=== PATIENT | female | born 1990 | race African-American/Black ===

== ENCOUNTER 2020-12-06 21:27 | Emergency (ER) | payer OTHER ==
[~2020-12-06] VITALS: Ht 165.1 cm; Wt 66.2 kg
[2020-12-06] MEDS ORDERED: PRENTAB9 PO (21:40)
[2020-12-06] MEDS ORDERED: MIRA3350 PO (21:40)
[2020-12-06] MEDS ORDERED: ACETAMINOPHEN *IV* 1,000 MG in IV 1 EA IV ONE (22:05)
[2020-12-06] MEDS ORDERED: NS 1,000 ML IV ONE (22:05)
[2020-12-06 22:20] LABS: BASO % 0.3 % (0.0-1.0); EOS # 0.1 10^3/uL (0.0-0.5); EOS % 1.2 % (0.0-3.0); HEMOGLOBIN 10.7 g/dl (12.0-15.5); LYMPH # 2.4 10^3/uL (1.5-5.0); LYMPH % 36.4 % (24.0-44.0); MEAN CORPUSCULAR HEMOGLOBIN 30.2 pg (27.0-33.0); MEAN CORPUSCULAR HGB CONC 33.4 g/dl (32.0-36.5); MEAN CORPUSCULAR VOLUME 90.4 fl (80.0-96.0); MONO # 0.3 10^3/uL (0.0-0.8); MONO % 5.2 % (2.0-8.0); NEUTROPHILS # 3.7 10^3/uL (1.5-8.5); NEUTROPHILS % 56.7 % (36.0-66.0); PLATELET COUNT, AUTOMATED 195 10^3/uL (150-450); RED BLOOD COUNT 3.54 10^6/uL (4.00-5.40); WHITE BLOOD COUNT 6.5 10^3/uL (4.0-10.0)
[2020-12-06 22:32] LABS: APPEARANCE, URINE CLEAR (CLEAR); BACTERIA, URINE AUTO 1+ (NEGATIVE); BILIRUBIN, URINE AUTO NEGATIVE (NEGATIVE); BLOOD, URINE BLOOD NEGATIVE (NEGATIVE); COLOR, URINE YELLOW (YELLOW); GLUCOSE, URINE (UA) AUTO NEGATIVE (NEGATIVE); KETONE, URINE AUTO NEGATIVE (NEGATIVE); LEUKOCYTE ESTERASE, URINE AUTO NEGATIVE (NEGATIVE); NITRITE, URINE AUTO NEGATIVE (NEGATIVE); PROTEIN, URINE AUTO NEGATIVE (NEGATIVE); RBC, URINE AUTO 0 /HPF (0-3); SPECIFIC GRAVITY URINE AUTO 1.006 (1.002-1.035); SQUAMOUS EPITHELIAL CELL UR AU 1 /HPF (0-6); UROBILINOGEN, URINE AUTO 0.2 mg/dL (0.0-2.0); WBC, URINE AUTO 1 /HPF (0-3)
[2020-12-06 22:42] LABS: ALBUMIN 3.3 GM/DL (3.2-5.2); ALT/SGPT 15 U/L (12-78); BILIRUBIN,DIRECT < 0.1 MG/DL (0.0-0.2); BILIRUBIN,TOTAL < 0.1 MG/DL (0.2-1.0); LIPASE 77 U/L (73-393); TOTAL PROTEIN 7.1 GM/DL (6.4-8.2)
--- NOTE | 2020-12-06 23:20 | REPVR ---
PROCEDURE INFORMATION: Exam: US Abdomen, Limited; Right Upper Quadrant Exam date and time: 12/06/2020 11:02 PM Age: 30 years old Clinical indication: Abdominal pain; Flank; Right; ; Additional info: Rlq abd/flank pain, appy v stone v gallbladder, preg TECHNIQUE: Imaging protocol: US abdomen. Real time ultrasound with image documentation. Limited exam focused on the right upper quadrant. COMPARISON: No relevant prior studies available. FINDINGS: Liver: Normal. No masses. Gallbladder: Normal. No gallstones. There is no gallbladder wall thickening. Common bile duct: Not well visualized. Pancreas: Visualized pancreas is unremarkable. Right kidney: Normal. No mass. No hydronephrosis. IMPRESSION: 1. No acute findings. 2. Common bile duct is not well visualized. Electronically signed by: Bryant Schmidt On 12/06/2020 23:20:47 PM
--- NOTE | 2020-12-06 23:23 | REPVR ---
PROCEDURE INFORMATION: Exam: US , Limited Exam date and time: 12/06/2020 11:02 PM Age: 30 years old Clinical indication: complicated by abdominal or pelvic pain; Right lower quadrant; Second trimester; Gestational age or lmp: 17w 3d; ; Additional info: Rlq abd/flank pain, appy v stone v gallbladder, preg TECHNIQUE: Imaging protocol: Real-time ultrasound of the maternal uterus with image documentation. Exam focused on the clinical indication. COMPARISON: No relevant prior studies available. FINDINGS: Gestation: Single living intrauterine gestation. position: Transverse position. heart rate: 144 bpm Placenta: Posterior placenta. No evidence of placenta previa. Amniotic fluid: Amniotic fluid appears normal. BIOMETRY: Gestational age (AUA): 17 weeks 3 days. Estimated due date (AUA): 05/13/2021. MATERNAL: Cervix: Cervix is thick and closed measuring 3.0 cm. IMPRESSION: 1. Unremarkable single living intrauterine gestation. 2. Estimated gestational age is 7 weeks 3 days. Electronically signed by: Bryant Schmidt On 12/06/2020 23:23:28 PM
[2020-12-06] MEDS ORDERED: SIMETHICONE 80MG CHEW TAB PO STA (23:35)
[2020-12-07] MEDS ORDERED: MORPHINE 4 MG/ML 1ML VIAL/SYRINGE (J2270) IV ONE
[2020-12-07] MEDS ORDERED: SIME180C PO (00:52)
[2020-12-07] MEDS ORDERED: NORCO 5/325MG TABLET (BULK FOR ED) PO ONE (01:00)
[2020-12-07 01:07] VITALS: BP 91/54
[2020-12-08] MEDS ORDERED: OXYC1TAB23 PO (08:48)
[2020-12-08] MEDS ORDERED: OXYC10TA3 PO (10:44)
== END 2020-12-07 01:10 | disposition home or self-care (01) ==
LOC: M ED 21:27
DX: O26.892 Other specified pregnancy related conditions, second trimester (principal); R10.9 Unspecified abdominal pain; N80.9 Endometriosis, unspecified
CPT/HCPCS: 36415; 76705; 76815; 80047; 80076; 81001; 83690; 85025; 87086; 96365; 96375; 99284; J0131; J2270

== ENCOUNTER 2020-12-08 08:36 | Emergency (ER) | payer OTHER ==
[~2020-12-08] VITALS: Ht 165.1 cm; Wt 65.5 kg
[~2020-12-08 08:36] MED LIST: MIRA3350 PO; PRENTAB9 PO; SIME180C PO
[2020-12-08] MEDS ORDERED: OXYC1TAB23 PO (08:48)
[2020-12-08] MEDS ORDERED: DICYCLOMINE INJ 20MG/2ML (J0500) IM ONE (09:25)
[2020-12-08 09:51] LABS: BASO % 0.3 % (0.0-1.0); EOS # 0.1 10^3/uL (0.0-0.5); EOS % 1.1 % (0.0-3.0); HEMATOCRIT 36.2 % (36.0-47.0); HEMOGLOBIN 11.9 g/dl (12.0-15.5); LYMPH # 2.5 10^3/uL (1.5-5.0); LYMPH % 40.7 % (24.0-44.0); MEAN CORPUSCULAR HGB CONC 32.9 g/dl (32.0-36.5); MEAN CORPUSCULAR VOLUME 91.2 fl (80.0-96.0); MONO # 0.3 10^3/uL (0.0-0.8); MONO % 5.3 % (2.0-8.0); NEUTROPHILS # 3.2 10^3/uL (1.5-8.5); NEUTROPHILS % 52.3 % (36.0-66.0); PLATELET COUNT, AUTOMATED 203 10^3/uL (150-450); RED BLOOD COUNT 3.97 10^6/uL (4.00-5.40); WHITE BLOOD COUNT 6.2 10^3/uL (4.0-10.0)
[2020-12-08] MEDS ORDERED: oxyCODONE 5MG TAB PO ONE (10:30)
[2020-12-08] MEDS ORDERED: OXYC10TA3 PO (10:44)
[2020-12-08 11:06] VITALS: BP 114/60
== END 2020-12-08 11:19 | disposition home or self-care (01) ==
LOC: EDBD 08:36 → M ED 08:36
DX: O26.892 Other specified pregnancy related conditions, second trimester (principal); O34.12 Maternal care for benign tumor of corpus uteri, second trimester; O34.82 Maternal care for other abnormalities of pelvic organs, second trimester
CPT/HCPCS: 85025; 96372; 99284; J0500